=== PATIENT | female | born 1995 | race Caucasian/White ===

== ENCOUNTER 2017-01-21 20:07 | Emergency (ER) | payer BC ==
[2017-01-21 20:44] LABS: PH,URINE 6.5 (4.5-8); URINE APPEARANCE Clear; URINE BILIRUBIN Negative (NEGATIVE); URINE GLUCOSE (UA) Negative (NEGATIVE); URINE KETONE Negative (NEGATIVE); URINE LEUK ESTERASE Negative (NEGATIVE); URINE NITRITE Negative (NEGATIVE); URINE PROTEIN Negative (NEGATIVE); URINE UROBILINOGEN 0.2 (0.2-1.0)
[2017-01-21 20:45] LABS: URINE BLOOD Trace-intact (NEGATIVE); URINE COLOR YELLOW
[2017-01-21 20:53] VITALS: BP 121/87; PULSE 76; TEMP 98; BMI 28.3
--- NOTE | 2017-01-21 20:54 | PDOC ---
History of Present Illness - General Chief Complaint: Pain Stated Complaint: LEFT LOWER QUADRANT PAIN Time Seen by Provider: 01/21/17 20:10 - History of Present Illness Initial Comments: This 21-year-old woman presents with a 2 day history of left lower quadrant/ left sided pelvic pain. Pain is worse with movement(patient feels pain especially when she is walking). No history of overuse of trauma to the area. She denies vaginal discharge/abnormal bleeding. Patient is currently in midcycle of her menstrual cycle. She has not had any pain associated with midcycle previously. Patient has noticed urinating more but no urinary urgency/ dysuria or hematuria. Patient states that she is a little bit more constipated unusual but has no other gastrointestinal symptoms except mild nausea (no vomiting). Patient was seen in urgent care and was told by her health care providers to come to the emergency room to "rule out ovarian torsion). No previous history of ovarian cysts or other adnexal abnormalities. Recent gynecological history notable for elective termination of in late September of this year. Patient reports no symptoms noted after the procedure. Past History - Past Medical History Allergies/Adverse Reactions: Allergies Allergy/AdvReac Type Severity Reaction Status Date / Time No Known Allergies Allergy Verified 01/21/17 20:08 Home Medications: Ambulatory Orders NK [No Known Home Medication] 01/21/17 Other medical history: DENIES - Reproductive History Is Patient Now?: No Therapeutic (s) & number: Yes (1ST AT AGE 14, THEN 2ND ON 10/03/2016) - Suicide/Smoking/Psychosocial Hx Smoking History: Former smoker Have you smoked in the past 12 months: Yes Number of Cigarettes Smoked Daily: 0 If you are a former smoker, when did you quit?: 2 WEEKS AGO Information on smoking cessation initiated: No Hx Alcohol Use: Yes (SOCIAL) Drug/Substance Use Hx: No Substance Use Type: Alcohol Review of Systems - Review of Systems Able to Perform ROS?: Yes Comments:: 12 point review of systems is negative except for what is noted in the history of present illness *Physical Exam - Vital Signs Last Vital Signs Temp Pulse Resp BP Pulse Ox 98.0 F 76 20 121/87 100 01/21/17 20:08 01/21/17 20:08 01/21/17 20:08 01/21/17 20:08 01/21/17 20:08 - Physical Exam Comments: GENERAL: Young adult female, alert and oriented 3, in no acute distress HEAD: Normal with no signs of trauma. EYES: PERRLA, EOMI, sclera anicteric, conjunctiva clear. ENT: Ears normal, nares patent, oropharynx clear without exudates. Dry mucous membranes. NECK: Normal range of motion, supple without lymphadenopathy, JVD, or masses. LUNGS: Breath sounds equal, clear to auscultation bilaterally. No wheezes, and no crackles. HEART:Regular rate and rhythm, normal S1 and S2 without murmur, rub or gallop. ABDOMEN:.normal bowel sounds. Mild left lower quadrant tenderness. No guarding or rebound.No masses No distention. EXTREMITIES: Normal range of motion, no edema. No clubbing or cyanosis. No erythema, or tenderness. NEUROLOGICAL: Cranial nerves II through XII grossly intact. Normal speech. No focal neurological deficits. MUSCULOSKELETAL: Back non-tender to palpation, no CVA tenderness SKIN: Warm, Dry, normal turgor, no rashes or lesions noted. ED Treatment Course - ADDITIONAL ORDERS Additional order review: Laboratory Results 01/21/17 20:38 Urine Color Yellow Urine Appearance Clear Urine pH 6.5 Ur Specific [place] 1.010 Urine Protein Negative Urine Glucose (UA) Negative Urine Ketones Negative Urine Blood Trace-intact H Urine Nitrite Negative Urine Bilirubin Negative Urine Urobilinogen 0.2 Ur Leukocyte Esterase Negative Urine HCG, Qual Negative Progress Note - Progress Note Progress Note: Pelvic and transvaginal ultrasound performed to rule out ovarian torsion/ ovarian cyst rupture. Ultrasound revealed small follicles in both ovaries without evidence of free fluid. There was good blood flow in both ovaries. No other abnormality seen. Results discussed with the patient. Pain most likely related to mid cycle ovulation. The patient has an appointment scheduled with her panel installer in 2 days (January 24). She should keep this appointment and return to the emergency room if pain worsens or she develops fever/vomiting. *DC/Admit/Observation/Transfer Diagnosis at time of Disposition: Pelvic pain - Discharge Dispostion Disposition: HOME Condition at time of disposition: Stable - Patient Instructions Printed Discharge Instructions: DI for Pelvic Pain Additional Instructions: Ibuprofen/naproxen/acetaminophen as needed for pain Local warmth to the area of pain Return to ER if you have severe pain/vomiting/fever Follow-up with your panel installer on January 16 as scheduled
[2017-01-21 21:54] LABS: URINE BACTERIA FEW /hpf (NEGATIVE); URINE WBC 0-2 (3-5)
== END 2017-01-22 00:34 | disposition home or self-care (01) ==
LOC: FER 20:07
DX: R10.2 Pelvic and perineal pain (principal); Z87.891 Personal history of nicotine dependence
CPT/HCPCS: 76830-TC; 76856-TC; 81003; 81015; 84703; 99283-25

== ENCOUNTER 2018-12-28 00:41 | Emergency (ER) | payer BC ==
[2018-12-28 01:06] VITALS: BP 143/85; PULSE 56; TEMP 97.4; BMI 28.3
== END 2018-12-28 01:40 | disposition left against medical advice (07) ==
LOC: JER 00:41
DX: Z53.21 Procedure and treatment not carried out due to patient leaving prior to being seen by health care provider (principal)
CPT/HCPCS: 99281-25